=== PATIENT | male | born 1970 | race Caucasian/White ===

== ENCOUNTER 2024-12-20 14:24 | Emergency (ER) | payer OTHER, SELFPAY ==
[2024-12-20] VITALS (7 sets, daily range): BP systolic 152–169; BP diastolic 96–97; PULSE 76–98; RESP 14–23; TEMP 37.1; O2SAT 96–99; BMI 23.1
--- OUTSIDE RECORDS SUMMARY | 2024-12-20 14:26 | XMS_ITS | Clinical Summary ---
Author Organization [facility] Address [address] [place] [id number] Care Team Providers Care Road Freight Conductor Name Role Phone Needs Pcp, Assignment Primary Care Provider [phone] Source Comments You are receiving this document as you are listed as the primary care provider,follow-up provider, or the patient has been referred to you for consultation.This is in compliance with the Medicare andMedicaid EHR Incentive Program,which states Providers who transition their patient to another setting of careor provider of care or refers their patient to another provider of care shouldprovide summary care record for each transition of care or referral. [facility] Allergies No known active allergies Medications No known medications Social History Tobacco Use Types Packs/Day Years Used Date Smoking Tobacco: Never Smokeless Tobacco: Never Sex and Gender Information Value Date Recorded Sex Assigned at Not on file Legal Sex Male 4:04 AM CDT Gender Identity Not on file Sexual Orientation Not on file Last Filed Vital Signs Vital Sign Reading Time Taken Comments Blood Pressure 143/99 12/26/2018 4:32 PM CDT Pulse 80 12/26/2018 4:32 PM CDT Temperature 36.2 C (97.2 F) 12/26/2018 4:32 PM CDT Respiratory Rate 16 12/26/2018 4:32 PM CDT Oxygen Saturation 99% 12/26/2018 4:32 PM CDT Inhaled Oxygen Concentration - - Weight 80.7 kg (178 lb) 12/26/2018 4:32 PM CDT Height 182.9 cm (6') 12/26/2018 4:32 PM CDT Body Mass Index 24.14 12/26/2018 4:32 PM CDT Plan of Treatment Health Maintenance Due Date Last Done Comments Colon Cancer Screening Plan Due 1968 Hep C Screening (Preventive Services) 1968 PSA Screening Discussion 1968 HIV Screening (Preventive Services) 1984 Adult Preventive Visit 02/12/1986 HepB (1) 02/12/1987 Cholesterol 02/12/2003 Pneumococcal 50+ Yrs (1 of 1 - PCV) 02/12/2018 COVID-19 Vaccine (2 - 2023-2 5 season) 2024 01/11/2021 Influenza (#1) 2024 07/12/2020 DTaP/Tdap/Td (2 - Tdap) 05/13/2026 05/13/2016 Zoster/Shingles Completed 03/29/2020, 12/22/2019 HepA Aged Out No longer eligi ble based on patient's age to complete this topic Hib Aged Out No longer eligi ble based on patient's age to complete this topic IPV (Polio) Aged Out No longer eligi ble based on patient's age to complete this topic MCV4 Aged Out No longer eligi ble based on patient's age to complete this topic Meningococcal B Aged Out No longer el igible based on patient's age to complete this topic Insurance F[employer] INS[employer]ED Care Teams Road Freight Conductor Relationship Specialty Start Date End Date Needs Pcp, [place] [address] PCP - General 12/26/18
--- OUTSIDE RECORDS SUMMARY | 2024-12-20 14:26 | XMS_ITS | Clinical Summary ---
Author Organization [facility] Address [address] [place] [address] Care Team Providers Care Dielectric Embossing Machine Operator Name Role Phone [facility]- Primary Care Provider Allergies Active Allergy Reactions Criticality Noted Date Comments Gramineae Pollens Low 03/02/2021 Other reaction(s): Other (see comments) Sneezing Medications ibuprofen (ADVIL/MOTRIN) 600 MG tablet Take 1 tablet (600 mg) by mouth every 6 hours as needed for moderate pain 60 tablet 02/10/2022 Active amoxicillin-cla vulanate (AUGMENTIN) 875-125 MG tablet Take 1 tablet by mouth 2 times daily 20 tablet 02/10/2022 Active Social History Tobacco Use Types Packs/Day Years Used Date Smoking Tobacco: Never Assessed Adolescent Education Answer Date Record ed Getting School Help Needed Not on file 06/27 Sex and Gender Information Value Date Recorded Sex Assigned at Not on file Legal Sex Male 5:19 PM CDT Gender Identity Not on file Sexual Orientation Not on file Last Filed Vital Signs Vital Sign Reading Time Taken Comments Blood Pressure 155/99 02/21/2022 2:42 PM CDT Pulse 95 02/21/2022 2:38 PM CDT Temperature 36.3 C (97.4 F) 02/21/2022 2:38 PM CDT Respiratory Rate 18 02/21/2022 2:38 PM CDT Oxygen Saturation 98% 02/21/2022 2:38 PM CDT Inhaled Oxygen Concentration - - Weight 73.5 kg (162 lb) 02/21/2022 2:38 PM CDT Height - - Body Mass Index - - Plan of Treatment Health Maintenance Due Date Last Done Comments ADVANCE CARE PLANNING 1968 ANNUAL REVIEW OF HM ORDERS 1968 CT COLONOGRAPHY 1968 FIT 1968 FLEX SIG 1968 GLUCOSE 1968 sDNA (Cologuard) 1968 YEARLY PREVENTIVE VISIT 02/12/1971 COLONOSCOPY 02/12/1978 COLORECTAL CANCER SCREENING 02/12/1978 HIV SCREENING 02/12/1983 HEPATITIS C SCREENING 02/12/1986 HEPATITIS B IMMUNIZATION (1 of 3 - 19+ 3-dose series) 02/12/1987 LIPID 2008 Pneumococcal Vaccine: 50+ Years (1 of 1 - PCV) 02/12/2018 COVID-19 Vaccine (3 - 2023-2 5 season) 2024 02/08/2021, 01/11/2021 INFLUENZA VACCINE (#1) 2024 07/12/2020 PHQ-2 (once per calendar year) 2024 DTAP/TDAP/TD IMMUNIZATION (4 - Td or Tdap) 05/13/2026 05/13/2016, 05/28/2000, 05/28/2000 RSV VACCINE (1 - 1-dose 75+ series) 02/12/2043 ZOSTER IMMUNIZATION Completed 03/29/2020, 12/22/2019 HPV IMMUNIZATION Aged Out No longer e ligible based on patient's age to complete this topic MENINGITIS IMMUNIZATION Aged Out No l onger eligible based on patient's age to complete this topic RSV MONOCLONAL ANTIBODY Aged Out No l onger eligible based on patient's age to complete this topic Insurance [facility] [employer] Care Teams Dielectric Embossing Machine Operator Relationship Specialty Start Date End Date [facility]- [address] [place] [address] PCP - General 02/10/22
[2024-12-20 16:14] LABS: Appearance Urine Cloudy (Clear); Bilirubin Urine 2+ (Negative); Blood Urine 2+ (Negative); Color Urine Pink (Yellow); Glucose Urine Negative (Negative); Ketones Urine 3+ (Negative); Leukocyte Esterase Urine Trace (Negative); Nitrite Urine Negative (Negative); Protein Urine 3+ (Negative); Specific Gravity Urine >= 1.030 (1.000-1.030); Urobilinogen Urine 0.2 (0.2-1.0)
[2024-12-20 16:40] LABS: Bacteria Urine Few
--- NOTE | 2024-12-20 18:32 | ED.GENADULT ---
HPI - General Adult General Date Seen: 12/20/24 Chief complaint: Urogenital Problems, Male Stated complaint: Burning urine, chest pain, and left finger numbnes Time Seen by Provider: 12/20/24 18:27 History of Present Illness HPI narrative: 54 yo M presenting to the emergency department. He has been experiencing urinary dysuria since early this morning around 430. He is also complaining of chest discomfort ongoing for about a week or 10 days and tingling in his left hand 4th and 5th fingers for about a week or 10 days. . The patient is primarily here because his urinary problem. He notes since at about for 430 this morning he has been having frequent urination, dysuria. He says he has to go pee every few minutes and when he goes to PE he only urinates a few drops of urine before his bladder is empty. He is not having any flank pain. No fever chills with this. No flank pain. Bowel movements have been normal. He is not having any abdominal pain. He has no history of bladder infections His 2nd chief complaint is that he has had a rash with small red scaly spots on his arms for the past 3 weeks or so. He wonders if it is from dry air His 3rd chief complaint is chest pain. He says that he has had some dull but sharp chest pain on the left lateral chest. It has been off and on for about the past week and half for so. It comes and goes. He does not notice any pattern. No clear relationship to activity, position, eating. It does not radiate through the back. It is not ripping and tearing. It does not affect his abdomen. When it hurts it tends to hurt most of the day but some days it does not hurt at all. Along with this he also gets a little bit of a tingly feeling in his left hand 4th and 5th fingers. The tingly feeling in his left hand does not occur outside when his chest is hurting. He is not having any other numbness or weakness in his hands or arms or legs. No neck pain. Related Data Home Medications ?Medication ?Instructions ?Recorded ?Confirmed No Known Home Medications 12/20/24 12/20/24 Allergies Allergy/AdvReac Type Severity Reaction Status Date / Time No Known Drug Allergies Allergy Verified 12/20/24 15:16 PFSH PFSH Social History Smoking Status: Current every day smoker How often do you have a drink containing alcohol: 4 or more times a week How many standard drinks containing alcohol do you have on a typical day: 3 or 4 AUDIT-C Alcohol total score: 5 Non-prescribed substance use: marijuana (any form) Exam Narrative: Exam Narrative: Constitutional: Appears well-developed and well-nourished. Alert. Conversant. Non toxic. HENT: Head: Atraumatic. Nose: Nose normal. Mouth/Throat: Oral mucosa is clear and moist. no trismus. Pharynx normal. Tonsils symmetric. No tonsillar enlargement, erythema, or exudate. Eyes: Conjunctivae normal. EOM normal. Pupils equal, round, and reactive to light. No scleral icterus. Neck: Normal range of motion. Neck supple. No tracheal deviation present. No JVD Cardiovascular: Normal rate, regular rhythm. No gallop. No friction rub. No murmur heard. Symmetric radial artery pulses Pulmonary/Chest: Effort normal. No stridor. No respiratory distress. No wheezes. No rales. No rhonchi . No tenderness. Abdominal: Soft. Bowel sounds normal. No distension. No mass. No tenderness. No rebound. No guarding. No CVA tenderness Musculoskeletal: RUE: Normal range of motion. No tenderness. No deformity LUE: Normal range of motion. No tenderness. No deformity RLE: Normal range of motion. No edema. No tenderness. No deformity LLE: Normal range of motion. No edema. No tenderness. No deformity Neurological: Alert and oriented to person, place, and time. Normal strength. CN II-VII intact. No sensory deficit. GCS eye subscore is 4. GCS verbal subscore is 5. GCS motor subscore is 6. Normal coordination Skin: Skin is warm and dry. No rash noted. No pallor. Normal capillary refill. Psychiatric: Normal mood. Normal affect. Const: Vital Signs, click to edit/add: Vital Signs - 24 hr 12/20/24 15:16 12/20/24 19:05 12/20/24 20:26 Temperature 98.8 F Pulse Rate 91 82 Pulse Rate [Pulse Oximeter] 98 Respiratory Rate 16 16 23 Blood Pressure 152/96 H Blood Pressure [Ri ght Upper Arm] 169/97 H Pulse Oximetry 97 96 97 Oxygen Delivery Me thod Room Air Room Air 12/20/24 20:30 12/20/24 20:45 12/20/24 21:00 Temperature Pulse Rate 78 76 80 Pulse Rate [Pulse Oximeter] Respiratory Rate 14 19 22 Blood Pressure Blood Pressure [Ri ght Upper Arm] Pulse Oximetry 97 97 98 Oxygen Delivery Me thod 12/20/24 21:09 Temperature Pulse Rate 78 Pulse Rate [Pulse Oximeter] Respiratory Rate 16 Blood Pressure 152/97 H Blood Pressure [Ri ght Upper Arm] Pulse Oximetry 99 Oxygen Delivery Me thod Room Air Course Vital Signs Vital signs: Initial Vital Signs Temperature 98.8 F 12/20/24 15:16 Temperature Source Temporal Artery Scan 12/20/24 15:16 Pulse Rate 98 12/20/24 15:16 Pulse Rhythm Regular 12/20/24 15:16 Respiratory Rate 16 12/20/24 15:16 Blood Pressure 169/97 H 12/20/24 15:16 Blood Pressure Mean 121 H 12/20/24 15:16 Blood Pressure Position Sitting 12/20/24 15:16 Pulse Oximetry 97 12/20/24 15:16 Oxygen Delivery Method Room Air 12/20/24 15:16 Vital Signs Temperature 98.8 F 12/20/24 15:16 Pulse Rate 98 12/20/24 15:16 Respiratory Rate 16 12/20/24 15:16 Blood Pressure 169/97 H 12/20/24 15:16 Pulse Oximetry 97 12/20/24 15:16 Oxygen Delivery Method Room Air 12/20/24 15:16 Temperature 98.8 F 12/20/24 15:16 Pulse Rate 78 12/20/24 21:09 Respiratory Rate 16 12/20/24 21:09 Blood Pressure 152/97 H 12/20/24 21:09 Pulse Oximetry 99 12/20/24 21:09 Oxygen Delivery Method Room Air 12/20/24 21:09 Medications Administered Medications: Discontinued Medications Generic Name Dose Route Start Last Admin Trade Name Freq PRN Reason Stop Dose Admin Aspirin 324 mg 12/20/24 18:48 12/20/24 19:43 Aspirin 81 Mg Tab.Chew PO 12/20/24 18:49 324 mg ONCE ONE Administration Cephalexin HCl 500 mg 12/20/24 18:51 12/20/24 19:44 Cephalexin 500 Mg Capsule PO 12/20/24 18:52 500 mg ONCE ONE Administration Medical Decision Making [facility] Narrative Medical decision making narrative: This patient presents with a couple of different concerns. His primary concern is had urinary urgency, frequency, dysuria beginning early this morning persisting throughout the day. This clinically is consistent with a urinary tract infection. Urinalysis confirms the infection. There has been no fever, back/flank pain or significant abdominal pain. There is no clinical evidence of pyelonephritis, appendicitis, colitis, diverticulitis or any intraabdominal catastrophe. The patient will be started on antibiotics (cephalexin) for the infection. Return if increasing pain, vomiting, fever, or inability to tolerate the oral antibiotic. Follow up with primary physician is indicated if not improving in 2-3 days. His 2nd concern is that for about the past 10 days or so he has had intermittent episodes of a discomfort in his left lateral chest and sometimes with a numb feeling down his left arm. Differential was broad. No evidence of palpitations, syncope or other cardiac dysrhythmia. We considered possible ACS, however history is not really typical for that. The pain has been coming and going without any clear exertional component. He has been having pain all day since about 10:00 a.m. this morning. EKG showed nonspecific T-wave changes with T-wave inversions in leads V1, V3, V4 and a biphasic T-wave in lead V2. We did obtain a 2nd EKG due to artifact on the 1st which looks similar. Consider possible Wellens pattern with this EKG. Discussed with cardiology from [facility]. They advised that with only about 1 or 2 boxes of a T-wave inversion, this is really not deep enough to be concerning for Wellens. We did obtain 2 sets of cardiac enzymes here in the ER and both are normal. Given time since onset of symptoms, I do not think the patient needs to be admitted for further sets of enzymes. In discussion with Cardiology, they will contact the patient tomorrow to arrange an outpatient clinic visit with him with plans for an outpatient coronary CTA. Although I have low suspicion, I reviewed the potential for angina with patient and precautions for return to the ER with any worsening or changing symptoms reviewed. EKG shows no evidence for pericarditis. Clinical presentation not suggestive of myocarditis. Chest x-ray shows no evidence for pneumonia, pneumothorax, pulmonary edema, pleural effusion, rib fracture, cardiomegaly. Mediastinum is normal on the x-ray. The patient has no ripping or tearing pain through to the back and has symmetric pulses on exam, no other acute neuro findings so I doubt aortic dissection. Risk of radiation and contrast exposure would outweigh the benefit of CT angiogram. We considered PE for this patient. Overall is low risk. Age adjusted D-dimer is normal therefore will hold off on CT PA. No wheezing or bronchospasm to suggest COPD/asthma. No signs of chest wall cellulitis, shingles, injury. With reasonable clinical confidence, I think the patient is safe for outpatient follow up. Discussed return precautions. Questions answered. Patient voices comfort with the plan. Lab Data Labs: Lab Results 12/20/24 12/20/24 12/20/24 Range/Units 15:20 18:48 19:10 WBC 13.98 H (4.50-11.00) K/uL RBC 4.52 (4.30-5.90) m/uL Hgb 14.9 (13.5-17.5) gm/dL Hct 41.7 (37.0-53.0) % MCV 92 (80-100) fL MCH 33 (26-34) pg MCHC 36 (32-36) gm/dL RDW Coeff of Jania 11.7 (11.5-15.5) % Plt Count 132 L (140-440) K/uL Neut % (Auto) 86.0 H (42.0-72.0) % Lymph % (Auto) 4.4 L (20-44) % [place] % (Auto) 9.0 (0.0-11.0) % Eos % (Auto) 0.0 (0.0-7.0) % Baso % (Auto) 0.2 (0.0-3.0) % Neut # (Auto) 12.00 H (1.7-7.0) K/uL Lymph # (Auto) 0.60 L (0.90-2.90) K/uL [place] # (Auto) 1.30 H (0.00-0.90) K/UL Eos # (Auto) 0.00 (0.00-0.50) K/uL Baso # (Auto) 0.00 (0.00-0.30) K/uL Abs Immat Gran (auto) 0.10 (0.00-0.30) K/uL Imm/Tot Granulo (auto) 0.4 % D-Dimer Quant (PE/DVT) 0.52 H (0.00-0.50) ug/ml Sodium 129 L (135-149) mmol/L Potassium 4.1 (3.6-5.1) mmol/L Chloride 95 L (96-114) mmol/L Carbon Dioxide 21 (20-32) mmol/L Anion Gap 13 (7-15) mEq/L BUN 8 (7-30) mg/dL Creatinine 0.7 (0.5-1.5) mg/dL Estimated Creat Clear 128.52 Estimated GFR 108 ml/min Glucose 131 H (60-115) mg/dL Calcium 9.1 (8.4-10.6) mg/dL Urine Color [place] A (Yellow) Urine Appearance Cloudy A (Clear) Urine pH 6.0 (5.0-8.5) Ur Specific [place] >= 1.030 (1.000-1.030) Urine Protein 3+ A (Negative) Urine Glucose (UA) Negative (Negative) Urine Ketones 3+ A (Negative) Urine Blood 2+ A (Negative) Urine Nitrite Negative (Negative) Urine Bilirubin 2+ A (Negative) Urine Urobilinogen 0.2 (0.2-1.0) Ur Leukocyte Esterase Trace A (Negative) Urine RBC 10-25 A (0-2) Urine WBC 10-25 A (0-5) Ur Squamous Epith Cells None (None-Few) Urine Bacteria Few A (None) POC Troponin I 0.00 L (0.01-0.04) ng/ml 12/20/24 Range/Units 20:50 WBC (4.50-11.00) K/uL RBC (4.30-5.90) m/uL Hgb (13.5-17.5) gm/dL Hct (37.0-53.0) % MCV (80-100) fL MCH (26-34) pg MCHC (32-36) gm/dL RDW Coeff of Jania (11.5-15.5) % Plt Count (140-440) K/uL Neut % (Auto) (42.0-72.0) % Lymph % (Auto) (20-44) % [place] % (Auto) (0.0-11.0) % Eos % (Auto) (0.0-7.0) % Baso % (Auto) (0.0-3.0) % Neut # (Auto) (1.7-7.0) K/uL Lymph # (Auto) (0.90-2.90) K/uL [place] # (Auto) (0.00-0.90) K/UL Eos # (Auto) (0.00-0.50) K/uL Baso # (Auto) (0.00-0.30) K/uL Abs Immat Gran (auto) (0.00-0.30) K/uL Imm/Tot Granulo (auto) % D-Dimer Quant (PE/DVT) (0.00-0.50) ug/ml Sodium (135-149) mmol/L Potassium (3.6-5.1) mmol/L Chloride (96-114) mmol/L Carbon Dioxide (20-32) mmol/L Anion Gap (7-15) mEq/L BUN (7-30) mg/dL Creatinine (0.5-1.5) mg/dL Estimated Creat Clear Estimated GFR ml/min Glucose (60-115) mg/dL Calcium (8.4-10.6) mg/dL Urine Color (Yellow) Urine Appearance (Clear) Urine pH (5.0-8.5) Ur Specific [place] (1.000-1.030) Urine Protein (Negative) Urine Glucose (UA) (Negative) Urine Ketones (Negative) Urine Blood (Negative) Urine Nitrite (Negative) Urine Bilirubin (Negative) Urine Urobilinogen (0.2-1.0) Ur Leukocyte Esterase (Negative) Urine RBC (0-2) Urine WBC (0-5) Ur Squamous Epith Cells (None-Few) Urine Bacteria (None) POC Troponin I 0.00 L (0.01-0.04) ng/ml Imaging Data Chest x-ray: Attestation: I have reviewed the pertinent imaging results. Radiologist's impression: IMPRESSION: 1. No acute osseous injuries or abnormalities are noted. ECG Data Attestation: I personally reviewed and interpreted this ECG as follows: Interpretation: Normal sinus rhythm Rate: 87 CT: 156 QRS axis: Normal axis. No pathologic Q-waves. ST segment/T wave: Artifact in V1. Possible subtle ST depression and inverted T-wave in V2 to in V3. Inverted T-waves in V4 and V5. No old EKGs available for comparison. QTc: 450 Discharge Plan Discharge Clinical Impression: Urinary tract infection, Chest pain Patient Disposition: Home, Self-Care Condition: Stable Instructions: Chest Pain (DC), Urinary Tract Infection in Men (DC) Additional Instructions: As we discussed, you should receive a phone call tomorrow from the intranet support at [facility]. They will set you up with an appointment in their clinic for a CT scan of your heart. It is very important for you to answer their call and follow-up for your recheck appointment within the next 5-7 days. In the meantime, keep a close eye on your symptoms and if you are having worsening chest pain, worsening numbness down her left arm, or any other concerns, please return to the ER immediately to be rechecked. To treat your bladder infection will start you on antibiotics (cephalexin). Please take your antibiotic twice a day for 10 days to help treat your bladder infection. Please follow-up with your regular doctor for recheck within 1-2 weeks Prescriptions: No Action No Known Home Medications Follow Up/Referrals: Leonides Gordon MD [Primary Care Provider] - Stand Alone Forms: [email or web address] Info Instructions
--- NOTE | 2024-12-20 18:48 | CRLHL7_ITS ---
For Patients: As a result of the Cures Act, medical imaging exams and procedure reports are released immediately into your electronic medical record. You may view this report before your referring provider. If you have questions, please contact your health care provider. INDICATION: Chest pain, left hand numb TECHNIQUE: Hand radiograph 2 views left COMPARISON: None FINDINGS: Bone: No acute fractures or aggressive bone lesions are identified. Joint: The carpal and metacarpal-phalangeal joints are unremarkable in appearance. The interphalangeal joints are normal in appearance. Soft tissue: Unremarkable. No radiopaque foreign bodies are seen. IMPRESSION: 1. No acute osseous injuries or abnormalities are noted. Dictated by: Kevon Child MD @ 12/20/2024 20:10:25 (Electronically Signed)
--- OUTSIDE RECORDS SUMMARY | 2024-12-20 19:27 | XMS_ITS | Clinical Summary ---
Author Organization [facility] Address [address] [place] [address] Care Team Providers Care Digestion Operator Name Role Phone [facility] Provider Unavailable Allergies No known active allergies Medications No known medications Active Problems Problem Noted Date Diagnosed Date Presbyopia 12/19/2017 Regular astigmatism of left eye 12/19/2017 Hyperopic astigmatism of right eye 12/19/2017 INFECTION, URINARY TRACT NOS 05/18/2000 Immunizations Immunization Administration Dates Next Due Td (Age >=7 Years) 05/28/2000 Family History Medical History Relation Name Comments Hypertension Father Other Paternal Grandfather catarac ts Relation Name Status Comments Father Paternal Grandfather Social History Tobacco Use Types Packs/Day Years Used Date Smoking Tobacco: Never Smokeless Tobacco: Never Alcohol Use Standard Drinks/Week Comments Yes 0 (1 standard drink = 0.6 oz pure alcohol) wine with dinner daily and beer on weekends Sex and Gender Information Value Date Recorded Sex Assigned at Not on file Legal Sex Male 6:24 AM COUNTER INTELLIGENCE TECHNICIAN Gender Identity Not on file Sexual Orientation Not on file Obstetrics History Last Filed Vital Signs Vital Sign Reading Time Taken Comments Blood Pressure 158/96 12/19/2017 10:29 AM CDT Pulse 66 12/19/2017 10:29 AM CDT Temperature 37.2 C (98.9 F) 11/22/2003 12:00 AM COUNTER INTELLIGENCE TECHNICIAN Respiratory Rate 16 06/03/2000 12:00 AM CDT Oxygen Saturation - - Inhaled Oxygen Concentration - - Weight 84.5 kg (186 lb 3.2 oz) 01/08/2012 9:17 A M CDT Height 182.9 cm (6') 12/12/2005 11:15 AM COUNTER INTELLIGENCE TECHNICIAN Body Mass Index 25.25 12/12/2005 11:15 AM COUNTER INTELLIGENCE TECHNICIAN Plan of Treatment Health Maintenance Due Date Last Done Comments Tdap 02/12/1979 Depression screening for age 12+ 1980 HIV for age 15-65 02/12/1983 BMI (ht and wt on same day) for age 18+ 02/12/1986 Hepatitis C screening for age 18-79 02/12/1986 Tetanus booster 05/28/2010 05/28/2000 Colonoscopy through age 75 02/12/2013 Lipids for age 45-75 02/12/2013 12/19/2005 Pneumococcal series for age 50+ (1 of 1 - PCV) 02/12/2018 Zoster (shingles) series for age 50+ (1 of 2) 02/12/2018 COVID-19 vaccine series (2023- season) 2024 02/08/2021, 01/11/2021 Influenza Vaccine (#1) 2024 Procedures Procedure Name Priority Date/Time Associated Diagnosis Comments LIPID PANEL Routine 12/19/2005 8:18 AM COUNTER INTELLIGENCE TECHNICIAN Chest Pain from Last 3 Months or Most Recently Relevant to Health Maintenance Results * LIPID PANEL (12/19/2005 8:18 AM COUNTER INTELLIGENCE TECHNICIAN) CHOLESTEROL,TOTAL 180 110 - 199 mg/dL [facility] TRIGLYCERIDES 52 40 - 149 mg/dL [facility] HDL CHOLESTEROL 63 >40 mg/dL [facility] CHOL/HDL RATIO 2.86 <4.51 [facility] LDL CHOLESTEROL 107 <131 mg/dL [facility] PATIENT STATUS Fasting [facility] Blood specimen (specimen) BLOOD SPECIMEN / Unknown 12/19/2005 8:18 AM COUNTER INTELLIGENCE TECHNICIAN 12/19/2005 8:05 AM COUNTER INTELLIGENCE TECHNICIAN us Ariana Rangel MD CHEMISTRY F inal Result [facility] INTERNAL ZIP [phone] [address] from Last 3 Months or Most Recently Relevant to Health Maintenance Insurance [id number] [id number] Care Teams Digestion Operator Relationship Specialty Start Date End Date [place] PCP - General 01/25/21
--- OUTSIDE RECORDS SUMMARY | 2024-12-20 19:27 | XMS_ITS | Clinical Summary ---
Author Organization [facility] Address [address] [place] [id number] Care Team Providers Care Checker [employer] Name Role Phone Needs Pcp, Assignment Primary Care Provider [phone] Source Comments You are receiving this document [...] for each transition of care or referral. [facility] Allergies No known active allergies Medications No [...] this topic Insurance F[employer] INSURED Care Teams Check[employer] Relationship Specialty Start Date End Date Needs Pcp, [place] [address] PCP - General 12/26/18
--- OUTSIDE RECORDS SUMMARY | 2024-12-20 19:27 | XMS_ITS | Clinical Summary ---
Author Organization [facility] Address [address] [place] [id number] Care Team Providers Care Needle Bar Molder Name Role Phone [facility]- Primary Care Provider Allergies Active Allergy Reactions [...] Td or Tdap) 05/13/2026 05/13/2016, 05/28/2000, 05/28/2000 ZOSTER IMMUNIZATION Completed 03/29/2020, 12/22/2019 HPV IMMUNIZATION Aged Out No longer e ligible based on patient's age to complete this topic MENINGITIS IMMUNIZATION Aged Out No l onger eligible based on patient's age to complete this topic Insurance [facility] [employer] Care Teams Needle Bar Molder Relationship Specialty Start Date End Date [facility]- [address] [place] [address] [facility] - General 02/10/22
[2024-12-20] MEDS: ASPIRIN 81 MG TAB.CHEW 324 MG PO (19:43)
[2024-12-20] MEDS: cephALEXin 500 MG CAPSULE PO (19:44)
[2024-12-20 20:08] LABS: Basophils Percent Auto 0.2 % (0.0-3.0); Hematocrit 41.7 % (37.0-53.0); Hemoglobin* 14.9 gm/dL (13.5-17.5); Immature Granulocytes Pct Auto 0.4 %; Lymphocytes Percent Auto 4.4 % (20-44); Mean Corpuscular HGB Conc 36 gm/dL (32-36); Mean Corpuscular Hemoglobin 33 pg (26-34); Mean Corpuscular Volume 92 fL (80-100); Platelet Count* 132 K/uL (140-440); RDW Coefficient of Variation % 11.7 % (11.5-15.5); Red Blood Count 4.52 m/uL (4.30-5.90); White Blood Count* 13.98 K/uL (4.50-11.00)
[2024-12-20 20:10] LABS: Slide Review Reflex No
[2024-12-20 20:25] LABS: Chloride* 95 mmol/L (96-114); Potassium* 4.1 mmol/L (3.6-5.1); Sodium* 129 mmol/L (135-149)
[2024-12-20 20:28] LABS: Anion Gap 13 mEq/L (7-15); Blood Urea Nitrogen* 8 mg/dL (7-30); Calcium* 9.1 mg/dL (8.4-10.6); Carbon Dioxide* 21 mmol/L (20-32); Creatinine* 0.7 mg/dL (0.5-1.5); Est. Creatinine Clearance* 128.52; Estimated Glomerular Filt Rate 108 ml/min; Glucose* 131 mg/dL (60-115)
[2024-12-20 20:31] LABS: D Dimer Quantitative* 0.52 ug/ml (0.00-0.50)
--- NOTE | 2024-12-23 15:29 | ED_ITS ---
HPI - General Adult General Chief complaint: Urogenital Problems, Male Stated complaint: Burning urine, chest pain, and left finger numbnes Time Seen by Provider: 12/20/24 18:27 History of Present Illness HPI narrative: Addendum to my recent ER note. Patient was seen in the ER couple of days ago with urinary symptoms and had UTI. Was sent home on Keflex. However culture came back today growing Pseudomonas aeruginosa. This would not be sensitive to Keflex. It is sensitive to other antibiotics. Will switch to ciprofloxacin. Patient called today. He is overall doing well. Prescription sent to [id number] Related Data Previous Rx's ?Medication ?Instructions ?Recorded ciprofloxacin HCl 500 mg tablet 500 mg PO BID #14 tabs 12/23/24 (Cipro) Allergies Allergy/AdvReac Type Severity Reaction Status Date / Time No Known Drug Allergies Allergy Verified 12/20/24 15:16 PFSH PFS Social History Smoking Status: Current every day smoker How often do you have a drink containing alcohol: 4 or more times a week How many standard drinks containing alcohol do you have on a typical day: 3 or 4 AUDIT-C Alcohol total score: 5 Non-prescribed substance use: marijuana (any form) Course Vital Signs Vital signs: Initial Vital Signs Temperature 98.8 F 12/20/24 15:16 Temperature Source Temporal Artery Scan 12/20/24 15:16 Pulse Rate 98 12/20/24 15:16 Pulse Rhythm Regular 12/20/24 15:16 Respiratory Rate 16 12/20/24 15:16 Blood Pressure 169/97 H 12/20/24 15:16 Blood Pressure Mean 121 H 12/20/24 15:16 Blood Pressure Position Sitting 12/20/24 15:16 Pulse Oximetry 97 12/20/24 15:16 Oxygen Delivery Method Room Air 12/20/24 15:16 Vital Signs Temperature 98.8 F 12/20/24 15:16 Pulse Rate 98 12/20/24 15:16 Respiratory Rate 16 12/20/24 15:16 Blood Pressure 169/97 H 12/20/24 15:16 Pulse Oximetry 97 12/20/24 15:16 Oxygen Delivery Method Room Air 12/20/24 15:16 Temperature 98.8 F 12/20/24 15:16 Pulse Rate 78 12/20/24 21:09 Respiratory Rate 16 12/20/24 21:09 Blood Pressure 152/97 H 12/20/24 21:09 Pulse Oximetry 99 12/20/24 21:09 Oxygen Delivery Method Room Air 12/20/24 21:09 Medications Administered Medications: Discontinued Medications Generic Name Dose Route Start Last Admin Trade Name Aixa PRN Reason Stop Dose Admin Aspirin 324 mg 12/20/24 18:48 12/20/24 19:43 Aspirin 81 Mg Tab.Chew PO 12/20/24 18:49 324 mg ONCE ONE Administration Cephalexin HCl 500 mg 12/20/24 18:51 12/20/24 19:44 Cephalexin 500 Mg Capsule PO 12/20/24 18:52 500 mg ONCE ONE Administration Medical Decision Making Lab Data Labs: Lab Results 12/20/24 12/20/24 12/20/24 Range/Units 15:20 18:48 19:10 WBC 13.98 H (4.50-11.00) K/uL RBC 4.52 (4.30-5.90) m/uL Hgb 14.9 (13.5-17.5) gm/dL Hct 41.7 (37.0-53.0) % MCV 92 (80-100) fL MCH 33 (26-34) pg MCHC 36 (32-36) gm/dL RDW Coeff of Jania 11.7 (11.5-15.5) % Plt Count 132 L (140-440) K/uL Neut % (Auto) 86.0 H (42.0-72.0) % Lymph % (Auto) 4.4 L (20-44) % [place] % (Auto) 9.0 (0.0-11.0) % Eos % (Auto) 0.0 (0.0-7.0) % Baso % (Auto) 0.2 (0.0-3.0) % Neut # (Auto) 12.00 H (1.7-7.0) K/uL Lymph # (Auto) 0.60 L (0.90-2.90) K/uL [place] # (Auto) 1.30 H (0.00-0.90) K/UL Eos # (Auto) 0.00 (0.00-0.50) K/uL Baso # (Auto) 0.00 (0.00-0.30) K/uL Abs Immat Gran (auto) 0.10 (0.00-0.30) K/uL Imm/Tot Granulo (auto) 0.4 % D-Dimer Quant (PE/DVT) 0.52 H (0.00-0.50) ug/ml Sodium 129 L (135-149) mmol/L Potassium 4.1 (3.6-5.1) mmol/L Chloride 95 L (96-114) mmol/L Carbon Dioxide 21 (20-32) mmol/L Anion Gap 13 (7-15) mEq/L BUN 8 (7-30) mg/dL Creatinine 0.7 (0.5-1.5) mg/dL Estimated Creat Clear 128.52 Estimated GFR 108 ml/min Glucose 131 H (60-115) mg/dL Calcium 9.1 (8.4-10.6) mg/dL Urine Color [place] A (Yellow) Urine Appearance Cloudy A (Clear) Urine pH 6.0 (5.0-8.5) Ur Specific [place] >= 1.030 (1.000-1.030) Urine Protein 3+ A (Negative) Urine Glucose (UA) Negative (Negative) Urine Ketones 3+ A (Negative) Urine Blood 2+ A (Negative) Urine Nitrite Negative (Negative) Urine Bilirubin 2+ A (Negative) Urine Urobilinogen 0.2 (0.2-1.0) Ur Leukocyte Esterase Trace A (Negative) Urine RBC 10-25 A (0-2) Urine WBC 10-25 A (0-5) Ur Squamous Epith Cells None (None-Few) Urine Bacteria Few A (None) POC Troponin I 0.00 L (0.01-0.04) ng/ml 12/20/24 Range/Units 20:50 WBC (4.50-11.00) K/uL RBC (4.30-5.90) m/uL Hgb (13.5-17.5) gm/dL Hct (37.0-53.0) % MCV (80-100) fL MCH (26-34) pg MCHC (32-36) gm/dL RDW Coeff of Jania (11.5-15.5) % Plt Count (140-440) K/uL Neut % (Auto) (42.0-72.0) % Lymph % (Auto) (20-44) % [place] % (Auto) (0.0-11.0) % Eos % (Auto) (0.0-7.0) % Baso % (Auto) (0.0-3.0) % Neut # (Auto) (1.7-7.0) K/uL Lymph # (Auto) (0.90-2.90) K/uL [place] # (Auto) (0.00-0.90) K/UL Eos # (Auto) (0.00-0.50) K/uL Baso # (Auto) (0.00-0.30) K/uL Abs Immat Gran (auto) (0.00-0.30) K/uL Imm/Tot Granulo (auto) % D-Dimer Quant (PE/DVT) (0.00-0.50) ug/ml Sodium (135-149) mmol/L Potassium (3.6-5.1) mmol/L Chloride (96-114) mmol/L Carbon Dioxide (20-32) mmol/L Anion Gap (7-15) mEq/L BUN (7-30) mg/dL Creatinine (0.5-1.5) mg/dL Estimated Creat Clear Estimated GFR ml/min Glucose (60-115) mg/dL Calcium (8.4-10.6) mg/dL Urine Color (Yellow) Urine Appearance (Clear) Urine pH (5.0-8.5) Ur Specific [place] (1.000-1.030) Urine Protein (Negative) Urine Glucose (UA) (Negative) Urine Ketones (Negative) Urine Blood (Negative) Urine Nitrite (Negative) Urine Bilirubin (Negative) Urine Urobilinogen (0.2-1.0) Ur Leukocyte Esterase (Negative) Urine RBC (0-2) Urine WBC (0-5) Ur Squamous Epith Cells (None-Few) Urine Bacteria (None) POC Troponin I 0.00 L (0.01-0.04) ng/ml Discharge Plan Discharge Clinical Impression: Urinary tract infection, Chest pain Patient Disposition: Home, Self-Care Condition: Stable Instructions: Chest Pain (DC), Urinary Tract Infection in Men (DC) Additional Instructions: As we discussed, you should receive a phone call tomorrow from the procurement forester at [facility] [place]. They will set you up with an appointment in their clinic for a CT scan of your heart. It is very important for you to answer their call and follow-up for your recheck appointment within the next 5-7 days. In the meantime, keep a close eye on your symptoms and if you are having worsening chest pain, worsening numbness down her left arm, or any other concerns, please return to the ER immediately to be rechecked. To treat your bladder infection will start you on antibiotics (cephalexin). Please take your antibiotic twice a day for 10 days to help treat your bladder infection. Please follow-up with your regular doctor for recheck within 1-2 weeks Prescriptions: New ciprofloxacin HCl [Cipro] 500 mg tablet 500 mg PO BID Qty: 14 0RF Follow Up/Referrals: Leonides Gordon MD [Primary Care Provider] - Stand Alone Forms: [facility] Info Instructions
== END 2024-12-20 21:39 | disposition home or self-care (01) ==
PROVIDERS: Emergency Provider Emergency Medicine; PCP Family Medicine
DX: R07.9 Chest pain, unspecified (principal); N39.0 Urinary tract infection, site not specified
CPT/HCPCS: 36415; 71046; 80048; 81001; 84484; 85025; 85379; 87086; 93005; 99281; 99285; A9270

== ENCOUNTER 2024-12-28 15:06 | Outpatient (CLI) | payer OTHER, SELFPAY | END 2024-12-28 15:07 | disposition home or self-care (01) | LOC: NFLDREF 12-29 17:11 | PROVIDERS: Referring Provider Family Medicine; Visit Provider Physician Assistant Medical | DX: R07.9 Chest pain, unspecified (principal); N30.00 Acute cystitis without hematuria; N39.0 Urinary tract infection, site not specified; Z12.5 Encounter for screening for malignant neoplasm of prostate | CPT/HCPCS: 80053; 80061; 84439; 84443; G0103 ==

== ENCOUNTER 2025-01-28 08:49 | Outpatient (CLI) | payer OTHER, SELFPAY | END 2025-01-28 08:50 | disposition home or self-care (01) | PROVIDERS: Visit Provider Internal Medicine Cardiovascular Disease | DX: I10 Essential (primary) hypertension (principal); I34.0 Nonrheumatic mitral (valve) insufficiency; I07.1 Rheumatic tricuspid insufficiency | CPT/HCPCS: 93306 ==

== ENCOUNTER 2025-02-03 10:58 | Outpatient (CLI) | payer OTHER, SELFPAY | END 2025-02-03 10:59 | disposition home or self-care (01) | LOC: NFLDREF 02-09 02:26 | PROVIDERS: Visit Provider Internal Medicine Cardiovascular Disease | DX: I10 Essential (primary) hypertension (principal) | CPT/HCPCS: 80048; 80061 ==

== ENCOUNTER 2025-05-13 14:38 | Outpatient (CLI) | payer OTHER, SELFPAY | END 2025-05-13 14:39 | disposition home or self-care (01) | PROVIDERS: Visit Provider Nurse Practitioner Family | DX: E03.9 Hypothyroidism, unspecified (principal); R97.20 Elevated prostate specific antigen [PSA]; Z12.5 Encounter for screening for malignant neoplasm of prostate | CPT/HCPCS: 80053; G0103 ==